=== PATIENT | female | born 1990 | race American Indian/Alaskan Native ===

== ENCOUNTER 2018-05-07 11:59 | Emergency (ER) | payer MEDICAID ==
[2018-05-07 12:35] VITALS: BP 140/79
--- NOTE | 2018-05-07 12:38 | Emergency Department Report ---
Blank Doc - Documentation Documentation: Pt hip pain 2-3 days ago. 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 Pt also has a GAYLE in the back of her head that began this morning. She denies any fall, injury, dysuria, vaginal bleeding, abdominal pain. Pt is 30 weeks gestation. Pt has not tried any medication.PMHx of HTN. G1/PO/AO This initial assessment diagnostic orders/clinical plan/treatment (s) is/Are subject change based on patient's health status, clinical progression and re- assessment by fellow clinical providers in the ED. Further treatment and work-up at subsequent clinical providers discretion. Patient/guardians urged not to elope from their condition may be serious if not clinically assessed and managed. Initial order include: UA
--- NOTE | 2018-05-07 14:13 | Emergency Department Report ---
HPI - General Chief Complaint: Extremity Problem,Nontraumatic Time Seen by Provider: 05/07/18 12:33 - HPI HPI: This is a 27-year-old female at 30 weeks gestation who presents ED complaining of bilateral groin/hip pain over the past week. Patient states is worsening. She denies any vaginal bleeding, pelvic pain. She reports normal movement. She states she does not have an appointment with [facility] until next week. Patient states she wanted to come in to be evaluated for the pain. ED Past Medical Hx - Past Medical History Hx Hypertension: Yes - Surgical History Additional Surgical History: NONE - Social History Smoking Status: Never Smoker Substance Use Type: None - Medications Home Medications: Home Medications Medication Instructions Recorded Confirmed Last Taken Type Acetaminophen [Tylenol 8 Hour] 650 mg PO TID #30 tablet.er 05/07/18 Unknown Rx ED Review of Systems ROS: Stated complaint: HIP PAIN/VOMIT/HEADACHE Other details as noted in HPI Physical Exam - Physical Exam Vital Signs: Vital Signs 05/07/18 12:33 Temperature 98.3 F Pulse Rate 101 H Respiratory 18 Rate Blood Pressure 140/79 O2 Sat by Pulse 97 Oximetry Physical Exam: GENERAL: Alert and oriented x3, no apparent distress, Normal Gait, atraumatic. HEAD: Head is normocephalic and a-traumatic. Abdomen: Gravid, nontender to palpation BACK: Full range of motion, no spinal tenderness, Tenderness to palpation of the trapezius muscles and latissimus dorsi muscles of the back EXTREMITIES/MUSCULOSKELETAL: No cyanosis, clubbing, rash, lesions or edema. Full ROM bilaterally. UE/LE Pulses 2+ bilaterally. LE and UE 5+ strength bilaterally, NEUROLOGIC: The patient is cooperative with no focal neurologic deficits. SKIN: Warm and dry, No lesions, No ulceration or induration present. ED Course Vital Signs 05/07/18 12:33 Temperature 98.3 F Pulse Rate 101 H Respiratory 18 Rate Blood Pressure 140/79 O2 Sat by Pulse 97 Oximetry ED Medical Decision Making - Medical Decision Making 27-year-old female presents febrile ligament pain/bilateral hip pain Discussed the patient this is a normal symptom and Because the patient as she gets close to time she will experience round ligament pain radiating to the hips. Discussed with patient the try pelvic rock exercises. Instructions given to follow-up with [facility] couple days. Discussed the patient to take Tylenol as needed for pain. She's in no acute or respiratory distress. Patient is able to ambulate without any problems. Patient has no lacerations or sustaining any trauma or falls. She understands instructions and states will follow-up. Critical care attestation.: If time is entered above; I have spent that time in minutes in the direct care of this critically ill patient, excluding procedure time. ED Disposition Clinical Impression: Hip joint pain Disposition: DC- TO HOME OR SELFCARE Is pt being admited?: No Does the pt Need Aspirin: No Condition: Stable Instructions: Arthralgia (ED) Additional Instructions: Make sure to follow up with the primary care physician as discussed. Take all your medications as you've been prescribed. If you have any worsening symptoms or develop new symptoms please return to ED immediately. Prescriptions: Acetaminophen [Tylenol 8 Hour] 650 mg PO TID #30 tablet.er Referrals: YOON HARDWICK [Other] - 3-5 Days Forms: Work/School Release Form(ED) Time of Disposition: 14:16
== END 2018-05-07 14:20 | disposition home or self-care (01) ==
LOC: ED 11:59
DX: O26.893 Other specified pregnancy related conditions, third trimester (principal); M25.552 Pain in left hip; M25.551 Pain in right hip; O16.3 Unspecified maternal hypertension, third trimester; Z88.1 Allergy status to other antibiotic agents; Z88.0 Allergy status to penicillin; Z3A.30 30 weeks gestation of pregnancy
CPT/HCPCS: 99282

== ENCOUNTER 2018-07-07 20:18 | Inpatient (IN) | payer MEDICAID ==
[2018-07-07] MEDS ORDERED: LACTATED RINGERS 1,000 ML ONE ×2 (20:48→20:55)
[2018-07-07] MEDS ORDERED: REGLAN ONE (20:54)
[2018-07-07] MEDS ORDERED: BICITRA ONE (20:54)
[2018-07-07] MEDS ORDERED: PEPCID IV ONE ×2 (20:54→20:58)
[2018-07-07] MEDS ORDERED: CLEOCIN 900 MG/50 mL 900 MG/50 ML BAG IV ONE (20:55)
[2018-07-07] MEDS ORDERED: PITOCin/NS 20 UNIT/1000ML DRIP 40,000 MILLIUNITS/2,000 ML BAG IV ONE (20:56)
[2018-07-07] MEDS ORDERED: BICITRA PO ONE (20:56)
[2018-07-07] MEDS ORDERED: CLEOCIN 900 MG/50 mL 900 MG/50 ML BAG IV NR (21:00)
[2018-07-07] MEDS ORDERED: REGLAN IV NR (21:00)
[2018-07-07] MEDS ORDERED: LACTATED RINGERS 1,500 ML IV NR (21:00)
[2018-07-07] MEDS ORDERED: GENTAMICIN/NS 120MG/100ML 120 MG/100 ML BAG IV ONE (21:08)
[2018-07-07 21:09] LABS: Hematocrit 29.3 % (30.3-42.9); Hemoglobin 9.8 gm/dl (10.1-14.3); Mean Corpuscular HGB Conc 33 % (30-34); Mean Corpuscular Volume 98 fl (79-97); Platelet Count 218 K/mm3 (140-440); Red Cell Distribution Width 16.8 % (13.2-15.2)
[2018-07-07 21:24] LABS: Alanine Aminotransferase 9 units/L (7-56)
[2018-07-07] MEDS ORDERED: SUBLIMAZE ONE (21:27)
[2018-07-07 21:45] LABS: Bilirubin,Urine NEG (Negative); Blood,Urine NEG (Negative); Color,Urine Yellow (Yellow); Mucus,Urine FEW /HPF; Protein,Urine <15 mg/dL mg/dL (Negative); Urobilinogen,Urine < 2.0 mg/dL (<2.0)
[2018-07-07] MEDS ORDERED: NACL 0.9% 100 ML ONE (21:53)
[2018-07-07] MEDS ORDERED: NEO SYNEPHRINE ONE (21:53)
[2018-07-07] MEDS ORDERED: WATER FOR IRRIG STERILE IR ONE (21:55)
[2018-07-07] MEDS ORDERED: NACL 0.9% IR ONE (21:55)
[2018-07-07 21:59] LABS: Uric Acid 3.8 mg/dL (3.5-7.6)
--- NOTE | 2018-07-07 22:57 | Procedure Note ---
OB Delivery Note - Delivery Date of Delivery: 07/07/18 Surgeon: KOSTAS CLEMONS Estimated blood loss: other (800 mL) - Section Preop diagnosis: nonreassuring FHR tracing, other (Mild Preeclampsia ) Postop diagnosis: same section procedure: section, primary low transverse Disposition: PACU Complications: none Narrative: Please see operative report. - Infant A at 1 minute: 8 at 5 minutes: 9 Infant Gender: Male (2960g (6lb 8oz) @ 2209 pm)
--- NOTE | 2018-07-07 22:57 | History and Physical Report ---
History of Present Illness Date of examination: 07/07/18 Date of admission: 07/07/18 20:18 Chief complaint: scheduled for induction of labor History of present illness: Pt is a 27 year old -[place] female ARELIS 07/18/18 at 38w3d who was scheduled for induction of labor secondary to mild preeclampsia. However, pt had an episode of bradycardia lasting 3-4 minutes just after she arrived for her induction after only one contraction. She denies headache, blurry vision, right upper quadrant pain. She has had care at [facility] with comanagement by maternal medicine since 12 weeks complicated by genital herpes without lesion or prodrome on suppression, UTI that was treated, and mild preeclampsia as mentioned previously. She is GBS negative. Past History Past Medical History: other (Obesity, "slipped discs") Past Surgical History: [facility] TE[employer]ER History: other (PCOS) Family/Genetic History: diabetes, hypertension Social history: no significant social history - Obstetrical History Expected Date of Delivery: 07/18/18 Actual Gestation: 38 Week(s) 4 Day(s) : 2 Para: 0 Hx # Term Pregnancies: 0 Number of Pregnancies: 0 Spontaneous Abortions: 1 Induced : 0 Number of Living Children: 0 Medications and Allergies Allergies Allergy/AdvReac Type Severity Reaction Status Date / Time amoxicillin Allergy Itching Verified 05/07/18 12:03 Penicillins Allergy Itching Verified 05/07/18 12:03 Home Medications Medication Instructions Recorded Confirmed Last Taken Type Acetaminophen [Tylenol 8 Hour] 650 mg PO TID #30 tablet.er 05/07/18 Unknown Rx Active Meds: Active Medications Lactated Ringer's (Lactated Ringers) 1,500 mls @ 2,250 mls/hr IV PREOP NR Stop: 07/07/18 23:59 Review of Systems All systems: negative - Vital Signs Vital signs: Vital Signs Pulse BP 83 122/68 07/07/18 20:39 07/07/18 20:39 Temp Pulse Resp BP Pulse Ox 83 123/76 07/07/18 21:06 07/07/18 21:06 - Physical Exam Breasts: Positive: deferred Cardiovascular: Regular rate Abdomen: Positive: soft (obese, gravid ) Uterus: Positive: enlarged (gravid) Extremities: Positive: edema (trace) Results Result Diagrams: 07/07/18 20:50 07/07/18 20:50 Abnormal lab results 07/07/18 07/07/18 Range/Units 20:50 20:50 RBC 3.00 L (3.65-5.03) M/mm3 Hgb 9.8 L (10.1-14.3) gm/dl Hct 29.3 L (30.3-42.9) % MCV 98 H (79-97) fl MCH 33 H (28-32) pg RDW 16.8 H (13.2-15.2) % Lactate Dehydrogenase 352 H (91-180) units/L All other labs normal. Assessment and Plan A: IUP at 38w3d Mild Preeclampsia Nonreassuring status- bradycardia very remote from vaginal delivery Obesity Genital Herpes without lesion or prodrome GBS negative P: Admit to labor and delivery and proceed with urgent delivery.
--- NOTE | 2018-07-07 22:58 | Operative Report ---
Operative Report Operative Report: Date of procedure: July 07, 2018 Preoperative diagnosis: 1) IUP at 38w3d 2) Mild Preeclampsia 3) NRFHTS- Bradycardua 4) Obesity Postoperative diagnosis: Same Procedure: Primary low transverse section Surgeon: Taylor Alexis M.D. Anesthesia: Regional Findings: 1) Viable male , Apgars 8 and 9, weight 2960 g, (6 lb 8 oz) in cephalic presentation 2) Normal-appearing uterus and tubes. Enlarged polycystic ovaries bilaterally Estimated blood loss: 800 mL IV fluids: 2000 mL Urine output: 100 mL, clear at the end of the procedure Drains: Plasencia to gravity Specimens: Placenta to pathology Complications: None. Counts correct 3 Disposition: Stable to PACU Indication for procedure: The patient is a 27-year-old 010 at 38 weeks 3 days who presents with mild preeclampsia for induction of labor but was then found to have a bradycardia prior to the start of her induction. The decision was made to proceed with delivery. Operation in detail: After the risks, benefits, alternatives and complications were explained to the patient she gave informed consent for the procedure. She was subsequently taken to the operating room where regional anesthesia was noted to be adequate. She was subsequently placed in the dorsal supine position with leftward tilt and prepped and draped in a normal sterile fashion. heart tones were noted to be in the 150 s prior to incision. A timeout was performed. A Pfannenstiel skin incision was made with the knife and carried down to the layer of the fascia with the Bovie. The fascia was incised in the midline and the fascial incision was extended bilaterally with the Bovie. Attention was then turned to the superior aspect of the incision which was grasped with two Kochers, tented up, and dissected off the rectus muscles. Attention was then turned to the inferior aspect of the incision which was grasped with two Brooke s, tented up and dissected off the rectus muscles. The rectus muscles were then in the midline. The peritoneum was then entered bluntly. The peritoneal incision was extended with good visualization of the bladder. The peritoneal incision was then stretched. An Marlon self-retaining retractor was placed for visualization. The bladder blade was placed. The vesicouterine peritoneum was grasped with smooth pickups and incised with Metzenbaum scissors. Metzenbaum scissors were used to extend the incision bilaterally. The bladder flap was then created digitally and the bladder blade was replaced. A transverse incision was made in the lower uterine segment with a knife and extended bilaterally with the bandage scissors. The head was delivered without difficulty followed by shoulders and body. was bulb suctioned at delivery. The cord was clamped and cut and the was handed to NICU staff in attendance. Cord blood was collected. The placenta was then delivered manually. The uterus was then cleared of all clots and debris. The hysterotomy was then reapproximated with 0 Vicryl in a running locked fashion. A second layer of the same suture was used in imbricating fashion. The hysterotomy was inspected and hemostasis was noted. The Marlon self-retaining retractor was removed. The gutters were irrigated and cleared of all clots and debris. The hysterotomy was again inspected and noted to be hemostatic. Surgicel was placed over the hysterotomy. The peritoneum was reapproximated with 2-0 Vicryl in a running fashion incorporating the rectus muscles. The fascia was reapproximated with 0 Vicryl in a running fashion. Additional [id number]'s of 0 Vicryl were used at the center of the incision. The subcutaneous tissue was reapproximated with 3-0 Vicryl in a running fashion. The skin was reapproximated with 4-0 Vicryl in a subcuticular fashion. The incision was then covered with steri strips and a pressure dressing. The procedure was then ended. The patient tolerated the procedure well and was taken to the PACU in stable condition. All instrument, lap, and needle counts were correct 3.
[2018-07-07] MEDS ORDERED: DILAUDID IV PRN (23:08)
[2018-07-07] MEDS ORDERED: ZOFRAN IV PRN (23:08)
[2018-07-07] MEDS ORDERED: PHENERGAN PR PRN (23:08)
[2018-07-07] MEDS ORDERED: NARCAN 0.4 MG/1 ML IV PRN (23:08)
[2018-07-07] MEDS ORDERED: PHENERGAN PO PRN (23:08)
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
--- NOTE | 2018-07-07 23:11 | Anesthesia Day of Surgery ---
Anesthesia Day of Surgery - Day of Surgery Patient Examined: Yes Patient H&P Reviewed: Yes Patient is NPO: Yes Beta Blockers: No Cardiac Clearance: No Pulmonary Clearance: No Rikki's Test: N/A
--- NOTE | 2018-07-07 23:12 | Post Anesthesia Evaluation ---
- Post Anesthesia Evaluation Patient Participated: Yes Airway Patent: Yes Stable Respiratory Function: Yes Nausea/Vomiting: No Temp > 96.8F: Yes Pain Manageable: Yes Adequeate Hydration: Yes Anesthesia Complications: No Block Receding Appropriately: Yes Patient on Ventilator: No
[2018-07-07] MEDS ORDERED: SODIUM CHLORIDE FLUSH SYRINGE 10 ML IV PRN (23:45)
[2018-07-07] MEDS: DILAUDID IV PRN (23:59)
[2018-07-08] MEDS: DILAUDID IV PRN ×2 (00:04→00:09)
[2018-07-08] MEDS ORDERED: CYTOTEC PR ONE (00:31)
[2018-07-08] MEDS ORDERED: CYTOTEC ONE (00:36)
--- NOTE | 2018-07-08 00:40 | Event Note ---
Date: 07/08/18 On-call M.D. contacted by the patient's nurse with increase in vaginal bleeding. Patient given misoprostol 800 g per rectum. We'll continue to monitor her clinical status.
[2018-07-08] MEDS ORDERED: PITOCin/NS 20 UNIT/1000ML DRIP 20,000 MILLIUNITS/1,000 ML BAG IV ONE (00:51)
[2018-07-08] MEDS ORDERED: ZOFRAN IV PRN (00:54)
[2018-07-08] MEDS ORDERED: MYLICON PO PRN (00:54)
[2018-07-08] MEDS ORDERED: TUCKS PAD TP PRN (00:54)
[2018-07-08] MEDS ORDERED: DILAUDID IV PRN ×2 (00:54)
[2018-07-08] MEDS ORDERED: NARCAN 0.4 MG/1 ML IV PRN (00:54)
[2018-07-08] MEDS ORDERED: LANSINOH TP PRN (00:54)
[2018-07-08] MEDS ORDERED: SODIUM CHLORIDE FLUSH SYRINGE 10 ML IV PRN (01:00)
[2018-07-08] MEDS ORDERED: PITOCin/NS 20 UNIT/1000ML DRIP 20 UNITS/1,000 ML BAG IV SCH (01:00)
[2018-07-08] MEDS: TORADOL IV PRN ×2 (01:13→08:16)
[2018-07-08] MEDS: D5LR 1,000 ML IV SCH (05:56)
[2018-07-08] MEDS: CLEOCIN 600 MG/50 mL 600 MG/50 ML BAG IV SCH ×2 (06:01→12:40)
[2018-07-08] MEDS: FEOSOL PO SCH (10:40)
[2018-07-08] MEDS: PERCOCET 5/325 PO PRN ×3 (10:45→22:35)
--- NOTE | 2018-07-08 12:12 | Progress Note ---
Assessment and Plan - Patient Problems (1) delivery delivered Current Visit: Yes Status: Acute Plan to address problem: routine postop care monitor blood pressures closely Subjective - Subjective Date of service: 07/08/18 Interval history: Patient is having better pain control. Attempting to void after removal of vallecillo. Tolerating clear diet Patient reports: pain well controlled [place]: doing well Objective - Vital Signs Latest vital signs: Vital Signs Temp Pulse Resp BP BP Pulse Ox 07/08/18 08:40 99.7 F H 90 18 129/72 07/08/18 04:30 98.7 F 77 16 107/71 07/08/18 00:45 98.6 F 72 18 132/74 99 07/08/18 00:05 98.4 F 67 15 140/67 100 07/07/18 23:50 68 16 138/72 100 07/07/18 23:35 67 20 146/84 100 07/07/18 23:20 71 20 147/84 99 07/07/18 23:15 66 17 135/80 99 07/07/18 23:10 65 16 142/81 99 07/07/18 23:05 98.6 F 69 20 139/94 100 07/07/18 21:06 83 123/76 07/07/18 20:43 122/68 07/07/18 20:39 83 122/68 Intake and Output 07/07/18 07/08/18 07/08/18 22:59 06:59 14:59 Intake Total 2000 200 360 Output Total 100 900 Balance 1900 -700 360 Intake: IV 2000 200 Oral 360 Output: Urine 100 900 Indwelling Catheter 800 Other: Total, Intake Amount 360 Total, Output Amount 800 Weight 100.244 kg - Exam Abdomen: Present: soft Incision: Present: dressed - Labs Labs: Abnormal lab results 07/07/18 07/07/18 Range/Units 20:50 20:50 RBC 3.00 L (3.65-5.03) M/mm3 Hgb 9.8 L (10.1-14.3) gm/dl Hct 29.3 L (30.3-42.9) % MCV 98 H (79-97) fl MCH 33 H (28-32) pg RDW 16.8 H (13.2-15.2) % Lactate Dehydrogenase 352 H (91-180) units/L
[2018-07-08 14:08] LABS: Hematocrit 30.2 % (30.3-42.9)
[2018-07-08] MEDS: CLEOCIN 900 MG/50 mL 900 MG/50 ML BAG IV SCH ×2 (21:00)
[2018-07-08] MEDS: IBUPROFEN PO PRN (21:02)
[2018-07-08] MEDS: NACL 0.9% IV SCH (21:40)
[2018-07-08] MEDS: GENTAMICIN IV SCH (21:40)
[2018-07-09] MEDS ORDERED: M-M-R II VACCINE SUB-Q ONE (00:08)
[2018-07-09] MEDS: D5LR 1,000 ML IV SCH ×2 (00:49→23:22)
[2018-07-09] MEDS: PERCOCET 5/325 PO PRN ×3 (03:17→22:33)
[2018-07-09] MEDS: MILK OF MAGNESIA PO PRN (03:18)
[2018-07-09] MEDS: IBUPROFEN PO PRN ×3 (03:18→22:33)
[2018-07-09] MEDS: CLEOCIN 900 MG/50 mL 900 MG/50 ML BAG IV SCH ×3 (05:29→21:11)
[2018-07-09] MEDS ORDERED: BOOSTRIX IM ONE (06:00)
[2018-07-09 07:51] LABS: Basophils % (Auto) 0.3 % (0.0-1.8); Eosinophils # (Auto) 0.1 K/mm3 (0.0-0.4); Hematocrit 26.3 % (30.3-42.9); Hemoglobin 8.8 gm/dl (10.1-14.3); Lymphocytes # (Auto) 1.9 K/mm3 (1.2-5.4); Lymphocytes % (Auto) 22.5 % (13.4-35.0); Mean Corpuscular HGB Conc 34 % (30-34); Mean Corpuscular Volume 96 fl (79-97); Monocytes # (Auto) 1.1 K/mm3 (0.0-0.8); Monocytes % (Auto) 12.3 % (0.0-7.3); Platelet Count 171 K/mm3 (140-440); Red Blood Count 2.74 M/mm3 (3.65-5.03); Red Cell Distribution Width 16.6 % (13.2-15.2)
--- NOTE | 2018-07-09 08:39 | Progress Note ---
Assessment and Plan A/P POD 2 repeat csec temp spike on gent and clinda continue monitro vss anemia on iron continue close monitor cultures and labs sent Subjective - Subjective Date of service: 07/09/18 Principal diagnosis: s/p repeat csec Patient reports: appetite normal, voiding normally, pain well controlled, flatus, ambulating normally : doing well Objective - Vital Signs Latest vital signs: Vital Signs Temp Pulse Resp BP 07/09/18 00:30 98.7 F 67 18 114/78 07/08/18 21:00 99.1 F 07/08/18 17:49 101.4 F H 07/08/18 16:50 100.6 F H 07/08/18 16:10 91 H 20 137/76 07/08/18 11:40 99 F 68 18 126/75 07/08/18 08:40 99.7 F H 90 18 129/72 Intake and Output 07/08/18 07/09/18 07/09/18 23:59 07:59 15:59 Intake Total 790 Output Total 400 Balance 390 Intake: IV 50 CLEOCIN 900 MG/50 mL 900 50 mg In 50 ml @ 100 mls/hr IV Q8H [facility] Rx#:[id number] Oral 740 Output: Urine 400 Void 400 Other: Total, Intake Amount 320 Total, Output Amount 400 - Exam Breasts: Present: normal Cardiovascular: Present: Regular rate, Normal S1 Lungs: Present: Clear to auscultation, Normal air movement Abdomen: Present: normal appearance, soft, normal bowel sounds. Absent: distention, tenderness, guarding Vulva: both: normal Uterus: Present: normal, firm, fundal height below umbilicus. Absent: bogginess, tenderness Extremities: Present: normal Deep Tendon Reflex Grade: Normal +2 Incision: Present: normal, dry, intact - Labs Labs: Abnormal lab results 07/08/18 07/09/18 Range/Units Unknown 07:38 RBC 2.74 L (3.65-5.03) M/mm3 Hgb 10.0 L 8.8 L (10.1-14.3) gm/dl Hct 30.2 L 26.3 L (30.3-42.9) % RDW 16.6 H (13.2-15.2) % [place] % (Auto) 12.3 H (0.0-7.3) % [place] # 1.1 H (0.0-0.8) K/mm3
--- NOTE | 2018-07-09 10:10 | XRay Report ---
CHEST TWO VIEWS: 07/07/18 20:18:00 CLINICAL: Temperature spike after section COMPARISON: None FINDINGS: Mildpatchy and linear left lower lobe opacities on both views. Mild silhouetting of the left hemidiaphragm. Mild blunting of the left calcific angle. The left upper lobe is clear. The right lung is clear.The bones and soft tissues are normal. No tubes or lines. IMPRESSION: Mild left lower lobe atelectasis versus pneumonia.
[2018-07-09] MEDS: GENTAMICIN IV SCH (21:11)
[2018-07-09] MEDS: NACL 0.9% IV SCH (21:11)
[2018-07-10] MEDS: CLEOCIN 900 MG/50 mL 900 MG/50 ML BAG IV SCH (03:19)
[2018-07-10] MEDS: PERCOCET 5/325 PO PRN ×3 (03:21→20:20)
[2018-07-10] MEDS: IBUPROFEN PO PRN ×3 (03:22→18:02)
--- NOTE | 2018-07-10 08:36 | Progress Note ---
Assessment and Plan A/P POD 3 repeat csec temp spike on gent and clinda vss anemia on iron continue close monitor cultures and labs sent Patient will need at least 24 hrs abx consider d/c home tomorrow Subjective - Subjective Date of service: 07/10/18 Principal diagnosis: s/p repeat csec Patient reports: appetite normal, voiding normally, pain well controlled, flatus, ambulating normally [place]: doing well Objective - Vital Signs Latest vital signs: Vital Signs Temp Pulse Resp BP BP Pulse Ox 07/10/18 03:21 18 07/10/18 01:15 98.2 F 85 18 109/61 96 07/09/18 22:33 18 07/09/18 18:57 18 07/09/18 17:57 18 07/09/18 16:52 98.5 F 79 18 129/79 98 Intake and Output 07/09/18 07/10/18 07/10/18 23:59 07:59 15:59 Intake Total 50 360 Balance 50 360 Intake: IV 50 CLEOCIN 900 MG/50 mL 900 50 mg In 50 ml @ 100 mls/hr IV Q8H [facility] Rx#:[id number] Intake, Free Water 360 Other: # Voids Void 1 2 - Exam Breasts: Present: normal Cardiovascular: Present: Regular rate, Normal S1 Lungs: Present: Clear to auscultation, Normal air movement Abdomen: Present: normal appearance, soft, normal bowel sounds. Absent: distention, tenderness, guarding Uterus: Present: normal, firm, fundal height below umbilicus. Absent: bogginess, tenderness Extremities: Present: normal Deep Tendon Reflex Grade: Normal +2 Incision: Present: normal, dry, intact
[2018-07-10] MEDS: FEOSOL PO SCH ×2 (10:25→10:28)
[2018-07-10] MEDS: MILK OF MAGNESIA PO PRN (20:20)
[2018-07-11] MEDS: PERCOCET 5/325 PO PRN ×2 (03:02→12:33)
[2018-07-11] MEDS: IBUPROFEN PO PRN ×2 (03:02→10:21)
[2018-07-11] MEDS: FEOSOL PO SCH (10:22)
[2018-07-11 14:29] VITALS: BP 128/68
--- NOTE | 2018-07-11 15:49 | Discharge Summary ---
Providers - Providers Date of Admission: 07/07/18 20:18 Date of discharge: 07/11/18 Attending physician: KOSTAS CLEMONS Primary care physician: KOSTAS CLEMONS Hospitalization Reason for admission: induction of labor Delivery: Procedure: primary low transverse Incision: normal, dry, intact Other procedures: none complications: other (fever) Discharge diagnosis: IUP at term delivered baby: male Hospital course: Pt began to spike fevers on POD 2. She was treated with antibiotics. She has been afebrile for more than 24 hours Condition at discharge: Good Disposition: DC-01 TO HOME OR SELFCARE Plan - Discharge Medications Prescriptions: Docusate Sodium [Colace] 100 mg PO BID PRN #60 capsule PRN Reason: Constipation Ibuprofen [Motrin] 800 mg PO Q8HR PRN #60 tablet PRN Reason: Pain, Moderate (4-6) oxyCODONE /ACETAMINOPHEN [Percocet 5/325] 1 tab PO Q6HR PRN #30 tablet PRN Reason: Pain - Provider Discharge Summary Activity: routine, no sex for 6 weeks, no heavy lifting 4 weeks, no strenuous exercise Diet: routine Instructions: routine Additional instructions: [] Smoking cessation referral if applicable(refer to patient education folder for contact #) [] Refer to [facility] Booklet Call your doctor immediately for: * Fever > 100.5 * Heavy vaginal bleeding ( >1 pad per hour) * Severe persistent headache * Shortness of breath * Reddened, hot, painful area to leg or breast * Drainage or odor from incision. * Keep incision clean and dry at all times and follow doctor's instructions regarding bathing/showering - Follow up plan Follow up: KOSTAS CLEMONS MD [Primary Care Provider] - 7 Days Forms: [facility] Discharge Summary, Discharge Signature Page
== END 2018-07-11 16:04 | disposition home or self-care (01) | DRG 765 ==
LOC: LD 20:18 → OB 07-08 00:32
PROVIDERS: ADMIT Obstetrics & Gynecology; ATTEND Obstetrics & Gynecology
PROC: 10D00Z1 Extraction of Products of Conception, Low, Open Approach (ICD-10-PCS; principal; 2018-07-07)
DX: O14.04 Mild to moderate pre-eclampsia, complicating childbirth (principal); O98.32 Other infections with a predominantly sexual mode of transmission complicating childbirth; O75.0 Maternal distress during labor and delivery; O76 Abnormality in fetal heart rate and rhythm complicating labor and delivery; O99.214 Obesity complicating childbirth; O99.62 Diseases of the digestive system complicating childbirth; O99.284 Endocrine, nutritional and metabolic diseases complicating childbirth; E28.2 Polycystic ovarian syndrome; K21.9 Gastro-esophageal reflux disease without esophagitis; E66.9 Obesity, unspecified; O90.81 Anemia of the puerperium; A60.00 Herpesviral infection of urogenital system, unspecified; D64.9 Anemia, unspecified; Z3A.38 38 weeks gestation of pregnancy; Z37.0 Single live birth
CPT/HCPCS: 36415; 71046; 81001; 82565; 83615; 84450; 84460; 84550; 85014; 85018; 85025; 85027; 86850; 86900; 86901; 87040; 87086; 88307; G0378; A6250; J1170; J1580; J1885; J2370; J2590; J2765; J3010; J7120; J7121

== ENCOUNTER 2021-10-24 10:38 | Emergency (ER) | payer MEDICAID | END 2021-10-24 14:28 | disposition left against medical advice (07) | LOC: ED 10:38 | DX: O26.899 Other specified pregnancy related conditions, unspecified trimester (principal); R51.9 Headache, unspecified; Z53.21 Procedure and treatment not carried out due to patient leaving prior to being seen by health care provider; Z3A.00 Weeks of gestation of pregnancy not specified ==